=== PATIENT | female | born 1955 | race Caucasian/White ===

== ENCOUNTER 2018-11-21 08:44 | Outpatient (CLI) | payer MEDICARE ==
[2018-11-22] MEDS ORDERED: BAYER CHEWABLE81 MG PO (08:55)
[2018-11-22] MEDS ORDERED: APAP325 MG (08:55)
[2018-11-22] MEDS ORDERED: CATAPRES0.1 MG PO (08:55)
[2018-11-22] MEDS ORDERED: CYMBALTA30 MG (08:55)
[2018-11-22] MEDS ORDERED: MUCUS RELIEF400 MG (08:56)
[2018-11-22] MEDS ORDERED: PRINIVIL20 MG (08:56)
[2018-11-22] MEDS ORDERED: HYDROCHLOROTHIA25 MG (08:56)
[2018-11-22] MEDS ORDERED: LIPITOR40 MG (08:56)
[2018-11-22] MEDS ORDERED: FOLATE0.4 MG (08:56)
[2018-11-22] MEDS ORDERED: LOPRESSOR25 MG (08:57)
[2018-11-22] MEDS ORDERED: NEURONTIN 400400 MG (08:57)
[2018-11-22] MEDS ORDERED: CALCIUM 600 +1 EAC3 PO (14:46)
[2018-11-22] MEDS ORDERED: FOLATE0.4 MG PO (14:46)
[2018-11-22] MEDS ORDERED: CYMBALTA60 MG PO (14:46)
[2018-11-22] MEDS ORDERED: LIPITOR40 MG PO (14:47)
[2018-11-22] MEDS ORDERED: PRINIVIL20 MG PO (14:47)
[2018-11-22] MEDS ORDERED: MUCINEX600 MG PO (14:47)
[2018-11-22] MEDS ORDERED: METOPROLOL TART25 MG PO (14:48)
[2018-11-22] MEDS ORDERED: GABAPENTIN100 MG PO (14:48)
[2018-11-22] MEDS ORDERED: TESSALON PERLE100 MG PO (14:49)
[2018-11-22] MEDS ORDERED: ZANTAC300 MG PO (14:49)
[2018-11-22] MEDS ORDERED: TOPAMAX50 MG PO (14:49)
[2018-11-22] MEDS ORDERED: ZOFRAN4 MG PO (14:50)
[2018-11-22] MEDS ORDERED: HCTZ25 MG PO (14:51)
[2018-11-22] MEDS ORDERED: MELATONIN 3 MG1 TAB PO (14:53)
[2018-11-22] MEDS ORDERED: NYSTATIN1 PWD TOPICAL (14:54)
[2018-12-11 21:00] VITALS: BMI 51.6
== END 2018-11-21 12:56 | disposition other institution (70) ==
LOC: D.OPS 08:44
DX: I50.9 Heart failure, unspecified (principal)

== ENCOUNTER 2018-11-22 08:44 | Inpatient (IN) | payer MEDICARE ==
[~2018-11-22] VITALS: Ht 162.6 cm; Wt 122.3 kg
[2018-11-22] MEDS ORDERED: CYMBALTA30 MG (08:55)
[2018-11-22] MEDS ORDERED: CATAPRES0.1 MG PO (08:55)
[2018-11-22] MEDS ORDERED: BAYER CHEWABLE81 MG PO (08:55)
[2018-11-22] MEDS ORDERED: APAP325 MG (08:55)
[2018-11-22] MEDS ORDERED: HYDROCHLOROTHIA25 MG (08:56)
[2018-11-22] MEDS ORDERED: PRINIVIL20 MG (08:56)
[2018-11-22] MEDS ORDERED: LIPITOR40 MG (08:56)
[2018-11-22] MEDS ORDERED: FOLATE0.4 MG (08:56)
[2018-11-22] MEDS ORDERED: MUCUS RELIEF400 MG (08:56)
[2018-11-22] MEDS ORDERED: LOPRESSOR25 MG (08:57)
[2018-11-22] MEDS ORDERED: NEURONTIN 400400 MG (08:57)
[2018-11-22 10:04] LABS: BASOPHILS 0.3 % (0-2); EOSINOPHILS 3.4 % (0-7); HEMATOCRIT 38.2 % (36.0-48.0); HEMOGLOBIN 12.1 g/dL (12-16); IMMATURE GRANULOCYTES 0.2 % (0-5); LYMPHOCYTES 13.2 % (15-50); MCH 28.1 pg (26.0-34.0); MCHC 31.7 g/dL (31.0-37.0); MCV 88.6 fL (80.0-100.0); MEAN PLATELET VOLUME 12.1 fL (7.4-10.4); NEUTROPHILS 75.9 % (40-80); PLATELET COUNT 234 10x3/uL (130-400); RBC 4.31 10x6/uL (4.00-5.40); RDW 14.7 % (11.5-14.5); WBC 11.3 10x3/uL (4.8-10.8)
[2018-11-22 10:19] LABS: ALBUMIN 3.2 g/dL (3.4-5.0); ANION GAP 11.3 mmol/L (8-16); BILIRUBIN - TOTAL 0.57 mg/dL (0.2-1.3); CALCIUM 9.7 mg/dL (8.5-10.1); CARBON DIOXIDE 28.3 mmol/L (21.0-32.0); POTASSIUM - SERUM 3.6 mmol/L (3.5-5.1); PROTEIN - SERUM 7.3 g/dL (6.4-8.2)
[2018-11-22 10:24] VITALS: BP 131/79
[2018-11-22 10:27] LABS: MAGNESIUM - SERUM 2.1 mg/dL (1.8-2.4)
[2018-11-22 11:19] LABS: APPEARANCE CLEAR (CLEAR); BILIRUBIN NEGATIVE (NEGATIVE); COLOR YELLOW (YELLOW); GLUCOSE NEGATIVE (NEGATIVE); KETONE NEGATIVE (NEGATIVE); NITRITE NEGATIVE (NEGATIVE); PROTEIN NEGATIVE (NEGATIVE); SPECIFIC GRAVITY 1.005 (1.005-1.020); UROBILINOGEN NORMAL (NORMAL)
[2018-11-22 11:30] VITALS: BP 143/90
[2018-11-22 12:30] VITALS: BP 148/89
[2018-11-22] MEDS ORDERED: FOLATE0.4 MG PO (14:46)
[2018-11-22] MEDS ORDERED: CYMBALTA60 MG PO (14:46)
[2018-11-22] MEDS ORDERED: CALCIUM 600 +1 EAC3 PO (14:46)
[2018-11-22] MEDS ORDERED: MUCINEX600 MG PO (14:47)
[2018-11-22] MEDS ORDERED: PRINIVIL20 MG PO (14:47)
[2018-11-22] MEDS ORDERED: LIPITOR40 MG PO (14:47)
[2018-11-22] MEDS ORDERED: GABAPENTIN100 MG PO (14:48)
[2018-11-22] MEDS ORDERED: METOPROLOL TART25 MG PO (14:48)
[2018-11-22] MEDS ORDERED: TESSALON PERLE100 MG PO (14:49)
[2018-11-22] MEDS ORDERED: TOPAMAX50 MG PO (14:49)
[2018-11-22] MEDS ORDERED: ZANTAC300 MG PO (14:49)
[2018-11-22] MEDS ORDERED: ZOFRAN4 MG PO (14:50)
[2018-11-22] MEDS ORDERED: HCTZ25 MG PO (14:51)
[2018-11-22] MEDS ORDERED: MELATONIN 3 MG1 TAB PO (14:53)
[2018-11-22] MEDS ORDERED: NYSTATIN1 PWD TOPICAL (14:54)
[2018-11-22 16:40] VITALS: BP 152/85; Ht 162.6 cm; Wt 122.3 kg
[2018-11-22 20:30] VITALS: BP 136/66
[2018-11-23 00:38] VITALS: BP 134/74
[2018-11-23 05:40] VITALS: BP 117/65
[2018-11-23 08:31] VITALS: BP 129/71
[2018-11-23 09:30] LABS: HEMOGLOBIN 13.7 g/dL (12-16); MCH 28.4 pg (26.0-34.0); MCHC 31.9 g/dL (31.0-37.0); MCV 89.2 fL (80.0-100.0); MEAN PLATELET VOLUME 11.6 fL (7.4-10.4); PLATELET COUNT 239 10x3/uL (130-400); RBC 4.82 10x6/uL (4.00-5.40); WBC 10.8 10x3/uL (4.8-10.8)
[2018-11-23 09:47] LABS: BASOPHILS 2 % (0-2); EOSINOPHILS 5 % (0-7); LYMPHOCYTES 22 % (15-50); NEUTROPHILS 71 % (40-80); PLATELET ESTIMATE NORMAL
[2018-11-23 09:50] LABS: ANION GAP 12.7 mmol/L (8-16); CALCIUM 9.5 mg/dL (8.5-10.1); CARBON DIOXIDE 30.1 mmol/L (21.0-32.0); CREATININE - SERUM 1.1 mg/dL (0.6-1.3); POTASSIUM - SERUM 3.8 mmol/L (3.5-5.1)
[2018-11-23 12:54] VITALS: BP 90/53
[2018-11-23] MEDS ORDERED: ZYPREXA10 MG PO (13:07)
--- NOTE | 2018-11-24 11:33 | MORECARE ---
CASE MANAGEMENT DISCHARGE SUMMARY PATIENT: COLE MAE UNIT: [id number] ADM DATE: 11/22/18 AGE: 63 : 55 SEX: F ROOM/BED: D.2134 AUTHOR: MICHELLE GUTIERREZ PHYSICIAN: REFERRING PHYSICIAN: KATHIE ROSALES MD DATE OF SERVICE: 11/24/18 Discharge Plan Patient Name: COLE MAE Facility: [facility]:[place] : 1955 Planned Disposition: Nursing Facility [facility] Anticipated Discharge Date: 11/23/18 Discharge Date: 11/23/2018 Expected LOS: 1 Initial Reviewer: [email or web address] Initial Review Date: 11/24/2018 Generated: 11/24/18 12:33 pm Patient Name: COLE MAE Page 20334 at 1133 All edits/amendments must be made on the electronic document DICTATION DATE: 11/24/18 1132 AUCTIONEER TOBACCO: CHERRY 11/24/18 1132 RPT#: [id number] DC DATE:11/23/18 STATUS: DIS IN [facility] [address] [place] [address] END OF REPORT
--- NOTE | 2018-11-24 14:36 | EC ---
PATIENT:COLE MAE DATE OF SERVICE: 11/22/18 SEX: F MEDICAL RECORD: [id number] DATE OF : 55 LOCATION:D.M2 D.213 AGE OF PATIENT: 63 ADMISSION DATE: 11/22/18 REFERRING PHYSICIAN: INTERPRETING PHYSICIAN: CRISPIN NOBLES MD ECHOCARDIOGRAM REPORT ECHO CHARGES 4 ECHO COMPLETE Date: 11/23/18 CLINICAL DIAGNOSIS: CHF ECHOCARDIOGRAPHIC MEASUREMENTS (adult normal given) AC root (d.<3.7cm) 4.3 cm LV Septum d (<1.2 cm> 1.6 cm Valve Excursion 2.1 cm LV Septum (systole) 2.0 cm Left Atria (s.<4.0cm> 3.6 cm LVPW d(<1.2cm) 0.8 cm RV (d.<2.3cm) 3.7 cm LVPW (sytole) 0.9 cm LV diastole(<5.6CM) 4.8 cm MV E-F(>70mm/sec) cm LV systole 3.9 cm LVOT Diameter 2.0 cm MV exc.(>10mm) cm Est.ejection fraction (50-75%) % DOPPLER: LVIT cm/sec A 40 cm/sec E 38 cm/sec LA cm/sec RVSP 19.7 mmHg LVOT 100 cm/sec AOP1/2T m/s Asc. Ao 122 cm/sec RVOT 85 cm/sec RA cm/sec PA 78 cm/sec AV Gradient Peak 5.9 mmHg AV Mean 3.9 mmHg AV Area 2.5 cm MV Gradient Peak 1.1 mmHg MV Mean 0.7 mmHg MV Area cm COMMENTS: Policy Services Representative: Nasra RIGGSNAIMA MOSES Plug Maker: Fernie Nobles TAPE# PACS Pericardial Effusion N DATE OF SERVICE: 11/22/2018 FINDINGS: 1. Left ventricular chamber size is within normal limits. Left ventricular systolic function is normal. Overall ejection fraction is estimated at 60%. 2. Left atrium, right atrium, and right ventricle chamber sizes are within normal limit. 3. Valvular structures have normal structure and motion. 4. Doppler interrogation reveals only trace tricuspid regurgitation. No other valvular insufficiency or stenosis. Pulmonary systolic pressure is normal, ECHOCARDIOGRAM REPORT [id number] COLE MAE estimated at 19 mmHg. 5. No evidence of pericardial effusion or left ventricular thrombus. TRANSINT:[id number] Voice Confirmation ID: [id number] DOCUMENT ID: [id number] CRISPIN NOBLES MD at 1436 CC: [id number] DICTATION DATE: 11/23/18 1220 TAMALE MAKER: 11/23/18 1546 DIS IN 11/23/18 [place] [id number] [place] [id number]
== END 2018-11-23 15:48 | DRG 292 ==
LOC: D.ER 08:44 → D.EDHOLD 12:56 → D.M2 13:20
PROVIDERS: Emergency Medicine; ADMIT Legal Medicine
DX: I11.0 Hypertensive heart disease with heart failure (principal); F02.81 Dementia in other diseases classified elsewhere, unspecified severity, with behavioral disturbance; F31.30 Bipolar disorder, current episode depressed, mild or moderate severity, unspecified; I50.9 Heart failure, unspecified; E03.9 Hypothyroidism, unspecified; E78.5 Hyperlipidemia, unspecified; K21.9 Gastro-esophageal reflux disease without esophagitis; G30.9 Alzheimer's disease, unspecified; L89.012 Pressure ulcer of right elbow, stage 2; L89.892 Pressure ulcer of other site, stage 2

== ENCOUNTER 2018-12-11 20:42 | Emergency (ER) | payer MEDICARE ==
[~2018-12-11] VITALS: Ht 162.6 cm; Wt 136.4 kg
[~2018-12-11 20:42] MED LIST: APAP325 MG; BAYER CHEWABLE81 MG PO; CALCIUM 600 +1 EAC3 PO; CATAPRES0.1 MG PO; CYMBALTA30 MG; CYMBALTA60 MG PO; FOLATE0.4 MG; FOLATE0.4 MG PO; GABAPENTIN100 MG PO; HCTZ25 MG PO; HYDROCHLOROTHIA25 MG; LIPITOR40 MG; LIPITOR40 MG PO; LOPRESSOR25 MG; MELATONIN 3 MG1 TAB PO; METOPROLOL TART25 MG PO; MUCINEX600 MG PO; MUCUS RELIEF400 MG; NEURONTIN 400400 MG; NYSTATIN1 PWD TOPICAL; PRINIVIL20 MG; PRINIVIL20 MG PO; TESSALON PERLE100 MG PO; TOPAMAX50 MG PO; ZANTAC300 MG PO; ZOFRAN4 MG PO; ZYPREXA10 MG PO
[2018-12-11 21:00] VITALS: Ht 162.6 cm; Wt 136.4 kg
[2018-12-11 21:23] LABS: BASOPHILS 0.1 % (0-2); EOSINOPHILS 2.4 % (0-7); HEMATOCRIT 34.5 % (36.0-48.0); HEMOGLOBIN 11.1 g/dL (12-16); IMMATURE GRANULOCYTES 0.2 % (0-5); LYMPHOCYTES 12.7 % (15-50); MCH 28.8 pg (26.0-34.0); MCHC 32.2 g/dL (31.0-37.0); MCV 89.6 fL (80.0-100.0); MEAN PLATELET VOLUME 11.4 fL (7.4-10.4); MONOCYTES 7.1 % (2-11); NEUTROPHILS 77.5 % (40-80); PLATELET COUNT 228 10x3/uL (130-400); RBC 3.85 10x6/uL (4.00-5.40); WBC 13.9 10x3/uL (4.8-10.8)
[2018-12-11 21:50] LABS: ALBUMIN 3.1 g/dL (3.4-5.0); ANION GAP 12.6 mmol/L (8-16); BILIRUBIN - TOTAL 0.27 mg/dL (0.2-1.3); CALCIUM 9.5 mg/dL (8.5-10.1); CARBON DIOXIDE 29.1 mmol/L (21.0-32.0); CREATININE - SERUM 1.3 mg/dL (0.6-1.3); POTASSIUM - SERUM 4.7 mmol/L (3.5-5.1); PROTEIN - SERUM 7.3 g/dL (6.4-8.2)
[2018-12-11 21:59] LABS: THYROID STIMULATING HORMONE 2.77 uIU/mL (0.36-3.74)
[2018-12-11 23:31] LABS: APPEARANCE HAZY (CLEAR); BACTERIA FEW /hpf (NONE SEEN); BILIRUBIN NEGATIVE (NEGATIVE); COLOR YELLOW (YELLOW); EPITHELIAL CELLS NSEEN /hpf (0-5); GLUCOSE NEGATIVE (NEGATIVE); KETONE NEGATIVE (NEGATIVE); NITRITE NEGATIVE (NEGATIVE); PROTEIN NEGATIVE (NEGATIVE); RED CELLS - URINE 0-5 /hpf (0-5); SPECIFIC GRAVITY 1.005 (1.005-1.020); UROBILINOGEN NORMAL (NORMAL)
[2018-12-12 00:27] LABS: CHOL - HDL RATIO 3.5 ratio (2.3-4.1); LDL-HDL RATIO 1.5 ratio (1.5-3.5)
[2018-12-12 02:36] VITALS: BP 140/70
== END 2018-12-12 02:36 ==
LOC: D.ER 20:42
PROVIDERS: Family Medicine
DX: F23 Brief psychotic disorder (principal); F03.90 Unspecified dementia, unspecified severity, without behavioral disturbance, psychotic disturbance, mood disturbance, and anxiety; N39.0 Urinary tract infection, site not specified; I10 Essential (primary) hypertension

== ENCOUNTER → 2019-01-24 19:39 | Outpatient (CLI) | payer MEDICARE ==
[2018-12-11 21:00] VITALS: BMI 51.6
== END | disposition home or self-care (01) ==
LOC: D.LABREF 19:39
PROVIDERS: ATTEND Legal Medicine
DX: Z20.828 Contact with and (suspected) exposure to other viral communicable diseases (principal)

== ENCOUNTER 2019-06-03 10:12 | Inpatient (IN) | payer MEDICARE ==
[~2019-06-03] VITALS: Ht 152.4 cm; Wt 122.5 kg
--- NOTE | 2019-06-03 10:34 | NUR ---
SL SITED LAC WITH LAB DRAW INCLUDING 1 BC
[2019-06-03] MEDS ORDERED: FERROUS SULFAT325 MG PO (10:44)
[2019-06-03] MEDS ORDERED: REMERON15 MG PO (10:44)
[2019-06-03 11:17] LABS: BASOPHILS 0.1 % (0-2); EOSINOPHILS 3.9 % (0-7); HEMATOCRIT 35.3 % (36.0-48.0); HEMOGLOBIN 10.9 g/dL (12-16); IMMATURE GRANULOCYTES 0.4 % (0-5); LYMPHOCYTES 11.3 % (15-50); MCH 28.3 pg (26.0-34.0); MCHC 30.9 g/dL (31.0-37.0); MCV 91.7 fL (80.0-100.0); MEAN PLATELET VOLUME 11.5 fL (7.4-10.4); MONOCYTES 6.1 % (2-11); NEUTROPHILS 78.2 % (40-80); PLATELET COUNT 203 10x3/uL (130-400); RBC 3.85 10x6/uL (4.00-5.40); RDW 16.1 % (11.5-14.5); WBC 10.8 10x3/uL (4.8-10.8)
--- NOTE | 2019-06-03 11:22 | NUR ---
PT INCONT OF LARGE AMT URINE. CLEANED AND REPOSITIONED FOR COMFORT. NOTIED SMALL STAGE 2 DECUB TO BUTTOCKS. NO DRAINAGE.
[2019-06-03 11:25] VITALS: BP 149/58
[2019-06-03 11:26] LABS: ALBUMIN 3.1 g/dL (3.4-5.0); ANION GAP 9.6 mmol/L (8-16); BILIRUBIN - TOTAL 0.43 mg/dL (0.2-1.3); CALCIUM 8.7 mg/dL (8.5-10.1); CARBON DIOXIDE 31.2 mmol/L (21.0-32.0); CREATININE - SERUM 1.4 mg/dL (0.6-1.3); POTASSIUM - SERUM 3.8 mmol/L (3.5-5.1); PROTEIN - SERUM 7.1 g/dL (6.4-8.2)
--- NOTE | 2019-06-03 12:15 | NUR ---
LAC SL VERY POSITIONAL/OCCLUDING FREQUENTLY. ATTEMPTED TO PLACE 2ND SL WITHOUT SUCCESS. 2ND RN TO ATTEMPT
[2019-06-03 14:07] VITALS: BP 151/64
--- NOTE | 2019-06-03 14:19 | NUR ---
REPORT CALLED TO WERNER PIERRE BY SBAR FORMAT
--- NOTE | 2019-06-03 14:25 | NUR ---
TRANSPORTED TO THE FLOOR rM#[id number]. CONDITION STABLE
--- NOTE | 2019-06-03 14:50 | NUR ---
PT RECIEVED TO ROOM 2236 VIA STRETCHER FROM ER. ALERT AND ORIENTED NO ACUTE DISTRESS NOTED. PT REPORTS INCREASED REDNESS, SWELLING AND PAIN TO BILAT LOWER EXTREMITIES. BRIGHT RED REDNESS NOTED TO BILATERAL EXTREMITIES, INTACT BLISTERS NOTED TO RIGHT OUTER LEG WITH CRACKING SKIN TO BILATERAL LEGS. NO DRAINAGE NOTED AT THIS TIME. BLANCHABLE REDNESS NOTED TO COCCYX. IV TO LEFT AC WITH NS @ 100ML/HR INFUSING VIA PUMP. SITE WITHOUT REDNESS OR EDEMA. ORIENTED TO BED CONTROLS, CL AND ROOM.
[2019-06-03 15:02] VITALS: BP 179/73
[2019-06-03 20:50] VITALS: BP 105/56
[2019-06-04 00:50] VITALS: BP 104/66
[2019-06-04 04:47] VITALS: BP 124/60
[2019-06-04 06:50] LABS: BASOPHILS 0.2 % (0-2); EOSINOPHILS 4.2 % (0-7); HEMATOCRIT 35.2 % (36.0-48.0); HEMOGLOBIN 10.8 g/dL (12-16); IMMATURE GRANULOCYTES 0.6 % (0-5); LYMPHOCYTES 12.6 % (15-50); MCH 28.5 pg (26.0-34.0); MCHC 30.7 g/dL (31.0-37.0); MCV 92.9 fL (80.0-100.0); MEAN PLATELET VOLUME 10.4 fL (7.4-10.4); MONOCYTES 8.1 % (2-11); NEUTROPHILS 74.3 % (40-80); PLATELET COUNT 188 10x3/uL (130-400); RBC 3.79 10x6/uL (4.00-5.40); RDW 16.3 % (11.5-14.5)
[2019-06-04 07:04] LABS: CALCIUM 8.4 mg/dL (8.5-10.1); CARBON DIOXIDE 32.2 mmol/L (21.0-32.0); CREATININE - SERUM 1.4 mg/dL (0.6-1.3); POTASSIUM - SERUM 4.2 mmol/L (3.5-5.1)
--- NOTE | 2019-06-04 08:50 | NUR ---
PT RESTING IN BED WITH EYES CLOSED. INCONTINENT CARE PROVIDED AT THIS TIME DT BEING INCONTINENT OF URINE. NO ACUTE DISTRESS NOTED AT THIS TIME. O2 @ 2L NC IN PLACE. DENIES PAIN AT THIS TIME. SALINE LOC TO LEFT AC PATENT, WITHOUT REDNESS OR EDEMA. DRESSINGS C/D/I TO BILAT LOWER EXTREMITY. DENIES PAIN AT THIS TIME. DENIES FURTHER NEEDS. CL WITHIN REACH. ENCOURAGED TO CALL WITH NEEDS. CONTINUE POC
[2019-06-04 09:48] VITALS: BP 164/71
[2019-06-04 13:19] VITALS: BP 136/65
[2019-06-04 13:58] VITALS: Ht 152.4 cm; Wt 122.5 kg
[2019-06-04 16:44] VITALS: BP 134/82
--- NOTE | 2019-06-04 20:00 | NUR ---
EYES CLOSED SNORING RESPIRATIONS NOTED AROUSED EASILY, NO APPARENT DISTRESS, SONNY WRAPS IN PLACE TO BILATERAL LOWER LEGS, SEE SHIFT ASSESSMENT DONE AT THIS TIME, CALL LIGHT IN REACH
[2019-06-04 21:58] VITALS: BP 119/57
[2019-06-05 01:37] VITALS: BP 117/58
[2019-06-05 05:37] VITALS: BP 108/62
[2019-06-05 08:21] LABS: BASOPHILS 0.1 % (0-2); EOSINOPHILS 3.8 % (0-7); HEMATOCRIT 34.3 % (36.0-48.0); HEMOGLOBIN 10.6 g/dL (12-16); IMMATURE GRANULOCYTES 0.5 % (0-5); LYMPHOCYTES 11.8 % (15-50); MCH 28.3 pg (26.0-34.0); MCHC 30.9 g/dL (31.0-37.0); MCV 91.7 fL (80.0-100.0); NEUTROPHILS 73.8 % (40-80); PLATELET COUNT 205 10x3/uL (130-400); RBC 3.74 10x6/uL (4.00-5.40); WBC 10.1 10x3/uL (4.8-10.8)
[2019-06-05 08:39] LABS: ANION GAP 8.6 mmol/L (8-16); CALCIUM 8.5 mg/dL (8.5-10.1); CARBON DIOXIDE 30.4 mmol/L (21.0-32.0); CREATININE - SERUM 1.1 mg/dL (0.6-1.3)
[2019-06-05 09:51] VITALS: BP 135/73
[2019-06-05 12:00] VITALS: BP 125/64
[2019-06-05 16:51] VITALS: BP 114/75
--- NOTE | 2019-06-05 18:03 | NUR ---
PT IS WITHOUT NEEDS.CALL LIGHT IN REACH
[2019-06-05 20:00] VITALS: BP 138/57
[2019-06-06] VITALS: BP 142/68
[2019-06-06 04:00] VITALS: BP 139/64
--- NOTE | 2019-06-06 04:56 | NUR ---
ASSESSED AT THE BEGINNING OF THE SHIFT. PT IS ALERT AND ORIENTED, ABLE TO VERBALIZE NEEDS. SHE REMAINS INCONT. OF URINE AND WE ARE CHANGING HER AND THE LINENS EACH TIME SHE VOIDS. ISOLATION IS STILL IN PLACE FOR STAPH AND SHE HAS DRESSINGS IN PLACE TO BOTH OF HER LOWER EXTREMITIES. MOST OF THE EVENING SHE HAS BEEN ASLEEP AND RESTED WELL. NO COMPLAINTS HAVE BEEN VOICED. WILL CONTINUE TO MONITOR.
[2019-06-06 05:50] LABS: BASOPHILS 0.2 % (0-2); HEMATOCRIT 35.4 % (36.0-48.0); HEMOGLOBIN 10.8 g/dL (12-16); IMMATURE GRANULOCYTES 0.7 % (0-5); LYMPHOCYTES 10.8 % (15-50); MCH 28.1 pg (26.0-34.0); MCHC 30.5 g/dL (31.0-37.0); MCV 92.2 fL (80.0-100.0); MEAN PLATELET VOLUME 10.6 fL (7.4-10.4); NEUTROPHILS 74.3 % (40-80); PLATELET COUNT 217 10x3/uL (130-400); RBC 3.84 10x6/uL (4.00-5.40); RDW 15.9 % (11.5-14.5); WBC 11.4 10x3/uL (4.8-10.8)
[2019-06-06 06:35] LABS: ANION GAP 11.9 mmol/L (8-16); CALCIUM 8.9 mg/dL (8.5-10.1); CARBON DIOXIDE 29.4 mmol/L (21.0-32.0); CREATININE - SERUM 0.9 mg/dL (0.6-1.3); POTASSIUM - SERUM 4.3 mmol/L (3.5-5.1)
[2019-06-06 09:29] VITALS: BP 167/80
[2019-06-06 13:50] VITALS: BP 138/66
--- NOTE | 2019-06-06 15:58 | NUR ---
PLACED RIBEIRO CATH, RETENTION AND COMPROMISED WOUND HEALING. TOLERATED WELL. 900 RETURN, WELL SATURATING THE BED. ALSO RESITED IV TO L CHEST, 20G. TOLERATED WELL NO COMPLAINTS.
[2019-06-06 17:52] VITALS: BP 149/75
--- NOTE | 2019-06-06 19:38 | NUR ---
I have reviewed this patient and I concur with the Shift Assessment completed by the Licensed Practical Nurse today this shift.
--- NOTE | 2019-06-06 19:55 | NUR ---
LYING IN BED. DROWSY. RESP NONLABORED. BBS CTA. O2 @ 2L/NC. ABD OBESE. DRSG NOTED TO BLE. 2+ EDEMA NOTED TO BLE. PEDAL PULSES WEAK. RIBEIRO CATH PATENT AND DRAINING CLEAR YELLOW URINE. SALINE LOCK NOTED TO LT CHEST/AXILLARY REGION. CONFUSED TO SITUATION. SR ELEVATED X2. CL IN REACH. NO DISTRESS.
--- NOTE | 2019-06-06 22:00 | NUR ---
MELATONIN HELD DUE TO DROWSINESS.
--- NOTE | 2019-06-07 01:03 | NUR ---
SITTING UP IN BED EATING A SALAD. NO DISTRESS. CL IN REACH.
[2019-06-07 01:42] VITALS: BP 140/46
[2019-06-07 04:00] VITALS: BP 126/63
[2019-06-07 09:16] VITALS: BP 157/90
[2019-06-07 12:35] VITALS: BP 165/93
--- NOTE | 2019-06-07 15:54 | NUR ---
I have reviewed this patient and I concur with the Shift Assessment completed by the Licensed Practical Nurse today this shift.
[2019-06-07 16:36] VITALS: BP 165/82
--- NOTE | 2019-06-07 19:25 | NUR ---
LYING IN BED. ALERT AND ORIENTED TO SELF AND PLACE. CONFUSED. RESP IRREG. NONLABORED. O2 @ 2L/NC. DRSGS NOTED TO BLE. 2+ EDEMA NOTED TO BLE. NONPROD COUGH. RIBEIRO CATH PATENT AND DRAINING CLEAR YELLOW URINE. SALINE LOCK NOTED TO LT CHEST/AXILLA REGION. NO DISTRESS. DENIES PAIN. SR ELEVATED X2. CL IN REACH.
[2019-06-07 20:00] VITALS: BP 146/84
[2019-06-08] VITALS: BP 127/54
--- NOTE | 2019-06-08 01:31 | NUR ---
RESTING IN BED WITH EYES CLOSED. RESP EVEN AND NONLABORED. O2 @ 2L/NC. NO DISTRESS. SR ELEVATED X2. CL IN REACH.
[2019-06-08 05:15] LABS: BASOPHILS 0.2 % (0-2); HEMATOCRIT 34.4 % (36.0-48.0); HEMOGLOBIN 10.8 g/dL (12-16); IMMATURE GRANULOCYTES 0.5 % (0-5); LYMPHOCYTES 9.5 % (15-50); MCH 28.6 pg (26.0-34.0); MCHC 31.4 g/dL (31.0-37.0); MEAN PLATELET VOLUME 10.5 fL (7.4-10.4); MONOCYTES 9.6 % (2-11); NEUTROPHILS 77.2 % (40-80); PLATELET COUNT 223 10x3/uL (130-400); RBC 3.78 10x6/uL (4.00-5.40); RDW 15.7 % (11.5-14.5); WBC 12.6 10x3/uL (4.8-10.8)
[2019-06-08 05:17] LABS: ANION GAP 9.1 mmol/L (8-16); CARBON DIOXIDE 31.8 mmol/L (21.0-32.0); POTASSIUM - SERUM 3.9 mmol/L (3.5-5.1)
--- NOTE | 2019-06-08 06:29 | NUR ---
HAS RESTED WELL THIS SHIFT. LYING IN BED WITH EYES CLOSED. RESP EVEN AND NONLABORED. O2 IN USE. SR ELEVATED X2. CL IN REACH. NO DISTRESS.
--- NOTE | 2019-06-08 07:44 | NUR ---
ALERT AND ORIENTED TO SELF. LUNGS CLEAR BILATERALLY IN ALL TAYLOR. HEART SOUNDS S1 AND S2 HEARD IN ALL TAYLOR. BOWEL SOUNDS ACTIVE X 4. DRSGS IN PLACE TO BLE WITH SONNY WRAPS FOR CELLULITIS. SKIN OTHERWISE INTACT WITHOUT REDNESS. IV TO LEFT CHEST PATENT WITHOUT REDNESS. RIBEIRO PATENT DRAINING CLEAR YELLOW URINE. DENIES PAIN. ASSISTED TO BEDPAN. BED LOW. CALL KEANE AND PERSONAL ITEMS IN REACH. WILL CONTINUE TO MONITOR.
[2019-06-08 09:46] VITALS: BP 135/64
--- NOTE | 2019-06-08 12:36 | NUR ---
RESTING IN BED. DENIES PAIN. DENIES NEEDS. WILL CONTINUE TO MONITOR.
[2019-06-08 14:06] LABS: APPEARANCE CLEAR (CLEAR); BILIRUBIN NEGATIVE (NEGATIVE); COLOR YELLOW (YELLOW); GLUCOSE NEGATIVE (NEGATIVE); KETONE NEGATIVE (NEGATIVE); NITRITE NEGATIVE (NEGATIVE); PROTEIN 1+ mg/dL (NEGATIVE); SPECIFIC GRAVITY 1.015 (1.005-1.020); UROBILINOGEN NORMAL (NORMAL)
[2019-06-08 14:07] LABS: BACTERIA FEW /hpf (NONE SEEN); EPITHELIAL CELLS 0-5 /hpf (0-5); RED CELLS - URINE 25-50 /hpf (0-5); WHITE CELLS - URINE 0-5 /hpf (0-5)
[2019-06-08 14:23] VITALS: BP 133/100
--- NOTE | 2019-06-08 14:34 | NUR ---
SLEEPING. WILL CONTINUE TO MONITOR.
--- NOTE | 2019-06-08 16:44 | MORECARE ---
CASE MANAGEMENT DISCHARGE SUMMARY PATIENT: COLE MAE UNIT: [id number] ADM DATE: 06/03/19 AGE: 63 : 55 SEX: F ROOM/BED: D.2236 AUTHOR: MICHELLE GUTIERREZ PHYSICIAN: REFERRING PHYSICIAN: DEANDRE RACHEL MD DATE OF SERVICE: 06/08/19 Discharge Plan Patient Name: COLE MAE [facility] [facility] 1955 Planned Disposition: Nursing Facility [facility] Cert Anticipated Discharge Date: Discharge Date: Expected LOS: Initial Reviewer: [id number] Initial Review Date: 06/08/2019 Generated: 06/08/19 5:43 pm Patient Name: COLE MAE Page 61532 at 1644 All edits/amendments must be made on the electronic document DICTATION DATE: 06/08/191642 OIL PROSPECTING OBSERVER: CHERRY 06/08/191642 RPT#: [id number] DC DATE: STATUS: ADM IN [facility] [address] [place] [address] END OF REPORT
--- NOTE | 2019-06-08 16:53 | MORECARE ---
CASE MANAGEMENT DISCHARGE SUMMARY PATIENT: COLE MAE UNIT: [id number] ADM DATE: 06/03/19 AGE: 63 : 55 SEX: F ROOM/BED: D.2236 AUTHOR: MATT,DOC PHYSICIAN: REFERRING PHYSICIAN: DEANDRE RACHEL MD DATE OF SERVICE: 06/08/19 Discharge Plan Patient Name: COLE MAE Facility: [facility]:[place] : 1955 Planned Disposition: Nursing Facility [facility] Cert Anticipated Discharge Date: Discharge Date: Expected LOS: Initial Reviewer: [email or web address] Initial Review Date: 06/08/2019 Generated: 06/08/19 5:53 pm Comments DCP- Discharge Planning Updated by [email or web address]: Johana Patino on 06/08/19 3:[address] Patient Name: COLE MAE Admission Status: ER Accout number: [id number] Admission Date: 06-03-2019 : 1955 Admission Diagnosis:CELLULITIS OF LEFT LOWER LIMB Attending: RIRI Current LOS: 5 Anticipated DC Date: Planned Disposition: Nursing Facility [facility] Cert Primary Insurance: MEDICARE A & B Discharge Planning Comments: CM met with patient to complete initial dc planning assessment. CM educated patient on the CM role and verbal consent given by patient to complete assessment. Patient lives at [facility]. At discharge patient plans to return and feels this is a safe discharge. She states that she will be able to transport in their van when ready for discharge. CM will continue to follow and will assist as needed with dc plans/needs. Commercial Sales Director: Johana Patino DCPIA - Discharge Planning Initial Assessment Updated by [id number]: Johana Patino on 06/08/19 4:44 pm * Is the patient Alert and Oriented? Yes * PCP Dr. Almonte * Preadmission Environment Mechanic Welder Truck Driver Care Home * Facility Name [facility] * ADLs Total Dependent * Other Equipment All equipment provided by [facility] * List name and contact numbers for known caregivers / representatives who currently or will assist patient after discharge: Nery Weber - nikrishna - [phone] Jovany mckinnon - [phone] * Verbal permission to speak to the caregivers and representatives has been obtained from the patient. Yes * Community resources currently utilized None * Additional services required to return to the preadmission environment? No * Can the patient safely return to the preadmission environment? Yes * Has this patient been hospitalized within the prior 30 days at any hospital? No Coverage Notice Reviewer: [id number] Zenobia Patino Notice Issued Date-Time: 06/08/2019 16:46 Notice Type: Patient Choice Letter Notice Delivered To: Patient Relationship to Patient: Self [employer] Name: Delivery Method: HAND - Hand Delivered Juliann Days: Prior Verbal Notification: Recipient Understood Notice: Yes Recipient Signature: Yes Med Rec Note Co-signed by Attending: Coverage Notice Comment: JOSE for [facility] Last DP export: 06/08/19 3:43 p Patient Name: COLE MAE Page 02924 at 1653 All edits/amendments must be made on the electronic document DICTATION DATE: 06/08/191651 BRAND MANAGER: CHERRY 06/08/191651 RPT#: [id number] DC DATE: STATUS: ADM IN [facility] [address] [place] [address] END OF REPORT
[2019-06-08 17:12] VITALS: BP 132/56
--- NOTE | 2019-06-08 18:48 | NUR ---
RESTING IN BED. DENIES PAIN. DENIES NEEDS. BED LOW. CALL KEANE AND PERSONAL ITESM IN REACH. WILL CONTINUE TO MONITOR.
--- NOTE | 2019-06-08 19:40 | NUR ---
PT LYING IN BED RESTING WITHOUT DISTRESS, DENIES NEEDS. CL IN REACH, WILL CTM
[2019-06-08 22:03] VITALS: BP 112/53
[2019-06-09 01:49] VITALS: BP 120/67
[2019-06-09 06:31] VITALS: BP 110/54
[2019-06-09 09:18] LABS: ANION GAP 8.4 mmol/L (8-16); CARBON DIOXIDE 33.5 mmol/L (21.0-32.0); POTASSIUM - SERUM 3.9 mmol/L (3.5-5.1)
[2019-06-09 09:20] LABS: BASOPHILS 0.1 % (0-2); EOSINOPHILS 2.8 % (0-7); HEMATOCRIT 33.6 % (36.0-48.0); HEMOGLOBIN 10.6 g/dL (12-16); IMMATURE GRANULOCYTES 0.5 % (0-5); LYMPHOCYTES 9.9 % (15-50); MCH 28.4 pg (26.0-34.0); MCHC 31.5 g/dL (31.0-37.0); MCV 90.1 fL (80.0-100.0); MEAN PLATELET VOLUME 10.9 fL (7.4-10.4); MONOCYTES 9.6 % (2-11); NEUTROPHILS 77.1 % (40-80); PLATELET COUNT 240 10x3/uL (130-400); RBC 3.73 10x6/uL (4.00-5.40); RDW 15.7 % (11.5-14.5); WBC 13.4 10x3/uL (4.8-10.8)
[2019-06-09 09:32] VITALS: BP 141/76
--- NOTE | 2019-06-09 10:26 | NUR ---
PATIENT RESTING WITH NO NEEDS VOICED, ASSISTED WITH BEDPAN FOR BM. PATIENT IS VERY WEAK AND IS UNBLE TO TURN WITH OUT ASSISTANCE. CL IN REACH
[2019-06-09 13:01] VITALS: BP 114/61
[2019-06-09 18:45] VITALS: BP 130/69
[2019-06-09 20:00] VITALS: BP 127/78
[2019-06-10] VITALS: BP 130/75
[2019-06-10 04:00] VITALS: BP 127/66
[2019-06-10 07:02] LABS: BASOPHILS 0.2 % (0-2); HEMATOCRIT 34.3 % (36.0-48.0); HEMOGLOBIN 10.9 g/dL (12-16); IMMATURE GRANULOCYTES 0.6 % (0-5); LYMPHOCYTES 10.3 % (15-50); MCH 28.6 pg (26.0-34.0); MCHC 31.8 g/dL (31.0-37.0); MONOCYTES 7.3 % (2-11); NEUTROPHILS 78.6 % (40-80); PLATELET COUNT 255 10x3/uL (130-400); RBC 3.81 10x6/uL (4.00-5.40); RDW 15.9 % (11.5-14.5); WBC 13.6 10x3/uL (4.8-10.8)
[2019-06-10 07:16] LABS: ANION GAP 11.3 mmol/L (8-16); CALCIUM 9.5 mg/dL (8.5-10.1); CARBON DIOXIDE 30.5 mmol/L (21.0-32.0); CREATININE - SERUM 0.9 mg/dL (0.6-1.3); POTASSIUM - SERUM 3.8 mmol/L (3.5-5.1)
--- NOTE | 2019-06-10 08:00 | NUR ---
IV RESITED TO LEFT HAND X 1 STICK 22G, PATIENT TOLERATED WELL. IV TO LEFT UPPER ARM WAS ACCIDENTLY PULLED OUT, CATH INTACT
[2019-06-10 09:02] VITALS: BP 159/69
[2019-06-10 13:41] VITALS: BP 141/82
--- NOTE | 2019-06-10 14:34 | NUR ---
NUTRITION F/U PT TOLERATING NCS DIET WITH 50 TO 75% INTAKE RECENT MEALS. WILL CONTINUE TO PROVIDE DIET, MONITOR PO INTAKE. RD FOLLOWING
[2019-06-10 17:21] VITALS: BP 149/76
[2019-06-10 20:00] VITALS: BP 93/54
--- NOTE | 2019-06-10 20:30 | NUR ---
AWAKE,ALERT,ORIENTED. WATCHING TV WITHOUT DISTRESS NOTED. NO COMPLAINTS VOICED. IV TO LEFT HAND INTACT WITHOUT REDNESS OR EDMA NOTED. RIBEIRO PATENT AND DRAINING DARK HIGINIO URINE.SONNY WRAP INTACT TO BILATERAL LOWER LEGS. CL IN REACH
[2019-06-11 04:00] VITALS: BP 134/66
--- NOTE | 2019-06-11 06:22 | NUR ---
I have reviewed this patient and I concur with the Shift Assessment completed by the Licensed Practical Nurse today this shift.
[2019-06-11 07:30] VITALS: BP 178/88
--- NOTE | 2019-06-11 07:30 | NUR ---
PT RESTING QUIETLY IN BED WATCHING TV. NO ACUTE DISTRESS NOTED. O2 @ 2L NC IN PLACE. PT REPORTS NEEDING BED BURKETT FOR BM. ASSISTED PT WITH BED BURKETT AT THIS TIME. LARGE FORMED BM NOTED. PROVIDED SHERRIE CARE AT THIS TIME. IV TO LEFT HAND WITH NS @ 10ML/HR INFUSING VIA PUMP. SITE WITHOUT REDNESS OR EDMEA. F/C PATENT TO GRAVITY AND DRAINING. DENIES PAIN AT THIS TIME. BILAT LOWER EXTREMITIES WITH SONNY WRAP INTACT. DENIES FURTHER NEEDS AT THIS TIME. CL WITHIN REACH. ENCOURAGED TO CALL WITH NEEDS. CONTINUE POC
[2019-06-11 13:43] VITALS: BP 150/71
--- NOTE | 2019-06-11 14:58 | MORECARE ---
CASE MANAGEMENT DISCHARGE SUMMARY PATIENT: COLE MAE UNIT: [id number] ADM DATE: 06/03/19 AGE: 63 : 55 SEX: F ROOM/BED: D.2236 AUTHOR: MATT,DOC PHYSICIAN: REFERRING PHYSICIAN: DEANDRE RACHEL MD DATE OF SERVICE: 06/11/19 Discharge Plan Patient Name: COLE MAE Facility: [facility]:[place] : 1955 Planned Disposition: Nursing Facility [facility] Cert Anticipated Discharge Date: Discharge Date: Expected LOS: Initial Reviewer: [email or web address] Initial Review Date: 06/08/2019 Generated: 06/11/19 3:58 pm Comments DCP- Discharge Planning Updated by [id number]: Johana Patino on 06/11/19 1:[address] Updated clinical sent to [facility]. Zulay states to call her tomorrow at [phone] if she is discharged so she can set up equipment needs, etc. CM will continue to follow and assist with discharge planning/needs. DCP- Discharge Planning Updated by [id number]: Johana Patino on 06/08/19 3:[address] Patient Name: COLE MAE Admission Status: ER Accout number: [id number] Admission Date: 06-03-2019 : 1955 Admission Diagnosis:CELLULITIS OF LEFT LOWER LIMB Attending: RIRI Current LOS: 5 Anticipated DC Date: Planned Disposition: Nursing Facility [facility] Cert Primary Insurance: MEDICARE A & B Discharge Planning Comments: CM met with patient to complete initial dc planning assessment. CM educated patient on the CM role and verbal consent given by patient to complete assessment. Patient lives at [facility]. At discharge patient plans to return and feels this is a safe discharge. She states that she will be able to transport in their van when ready for discharge. CM will continue to follow and will assist as needed with dc plans/needs. Poultry Scalder: Johana Patino DCPIA - Discharge Planning Initial Assessment Updated by [email or web address]: Johana Patino on 06/08/19 4:44 pm * Is the patient Alert and Oriented? Yes * PCP Dr. Almonte * Preadmission Environment Gifted Program Teacher Half-Way * Facility Name [facility] * ADLs Total Dependent * Other Equipment All equipment provided by [facility] * List name and contact numbers for known caregivers / representatives who currently or will assist patient after discharge: Nery montes - [phone] Jovany mckinnon - [phone] * Verbal permission to speak to the caregivers and representatives has been obtained from the patient. Yes * Community resources currently utilized None * Additional services required to return to the preadmission environment? No * Can the patient safely return to the preadmission environment? Yes * Has this patient been hospitalized within the prior 30 days at any hospital? No External Providers External Provider: [facility] Next Contact Date: Service Request Date: Service Type: Resolution: Reviewer: Comments: Coverage Notice Reviewer: [id number] Zenobia Patino Notice Issued Date-Time: 06/08/2019 16:46 Notice Type: Patient Choice Letter Notice Delivered To: Patient Relationship to Patient: Self Tattoo Artist Name: Delivery Method: HAND - Hand Delivered Juliann Days: Prior Verbal Notification: Recipient Understood Notice: Yes Recipient Signature: Yes Med Rec Note Co-signed by Attending: Coverage Notice Comment: JOSE for [facility] Last DP export: 06/08/19 3:53 p Patient Name: COLE MAE Page 79801 at 1458 All edits/amendments must be made on the electronic document DICTATION DATE: 06/11/191456 MACHINE BUFFER: CHERRY 06/11/191456 RPT#: [id number] [place] DATE: STATUS: ADM IN [facility] [address] [place] [address] END OF REPORT
[2019-06-11 17:24] VITALS: BP 124/56
--- NOTE | 2019-06-11 19:42 | NUR ---
PT LYING IN BED. CL IN REACH. DENIES NEEDS AT THIS TIME. BED IN LOW SIDE RAILS X2. REPS EVEN AND UNLABORED. O2 ON 2L VIA NC. WILL CONTINUE TO MONITOR.
[2019-06-11 20:00] VITALS: BP 144/70
--- NOTE | 2019-06-12 01:58 | NUR ---
I have reviewed this patient and I concur with the Shift Assessment completed by the Licensed Practical Nurse today this shift.
--- NOTE | 2019-06-12 03:14 | NUR ---
ASSISTED PILOT PLANT TECHNICIAN WITH BED BATH. CHANGED LINEN AND GOWN. SHERRIE CARE PROVIDED. CL IN REACH. DENIES NEEDS AT THIS TIME. WCERIC
[2019-06-12 04:00] VITALS: BP 139/67
[2019-06-12 04:56] LABS: BASOPHILS 0.2 % (0-2); EOSINOPHILS 3.3 % (0-7); HEMATOCRIT 34.9 % (36.0-48.0); IMMATURE GRANULOCYTES 0.5 % (0-5); LYMPHOCYTES 14.8 % (15-50); MCH 28.6 pg (26.0-34.0); MCHC 31.5 g/dL (31.0-37.0); MCV 90.6 fL (80.0-100.0); MEAN PLATELET VOLUME 10.8 fL (7.4-10.4); MONOCYTES 6.8 % (2-11); NEUTROPHILS 74.4 % (40-80); PLATELET COUNT 265 10x3/uL (130-400); RBC 3.85 10x6/uL (4.00-5.40); RDW 15.9 % (11.5-14.5); WBC 13.1 10x3/uL (4.8-10.8)
[2019-06-12 05:05] LABS: ANION GAP 10.5 mmol/L (8-16); CALCIUM 9.2 mg/dL (8.5-10.1); CARBON DIOXIDE 32.4 mmol/L (21.0-32.0); POTASSIUM - SERUM 3.9 mmol/L (3.5-5.1)
[2019-06-12 09:01] VITALS: BP 136/71
[2019-06-12] MEDS ORDERED: BACTRIM 400-801 TAB PO (09:16)
--- NOTE | 2019-06-12 10:35 | NUR ---
ALERT AND ORIENTEDX4 IVF INFUSING AT PREWCRIBED RATE TO LT. HAND W/O ANY S/S OF INFECTION/INFILTRATION. RIBEIRO CATH INTACT WITH HIGINIO URINE. DRESSING INTACT TO BLE AND DENIES ANY PAIN OR DISCOMFORT AT THIS TIME. ENCOURAGED TO USE CALL LIGHT FOR ASSIST.
--- NOTE | 2019-06-12 12:14 | MORECARE ---
CASE MANAGEMENT DISCHARGE SUMMARY PATIENT: COLE MAE UNIT: [id number] ADM DATE: 06/03/19 AGE: 63 : 55 SEX: F ROOM/BED: D.2236 AUTHOR: MATT,DOC PHYSICIAN: REFERRING PHYSICIAN: DEANDRE RACHEL MD DATE OF SERVICE: 06/12/19 Discharge Plan Patient Name: COLE MAE Facility: [facility]:[place] : 1955 Planned Disposition: Nursing Facility [facility] Cert Anticipated Discharge Date: Discharge Date: Expected LOS: Initial Reviewer: [email or web address] Initial Review Date: 06/08/2019 Generated: 06/12/19 1:14 pm Comments DCP- Discharge Planning Updated by [id number]: Johana Patino on 06/12/19 11:[address] Patient Name: COLE MAE Encounter No: [id number] : 1955 Primary Insurance: MEDICARE A & B Anticipated DC Date: Planned Disposition: Nursing Facility [facility] Cert External Planned Provider: : DCP follow-up note: Patient in agreement to discharge to [facility] today, she will be going to a skilled bed. I spoke with Zulay and discharge clinical faxed. I informed Zulay she was on 2 liters NC oxygen. They will pick her up at 3:30. Patient states she does not want me to notify her niece or son, that she will notify them. Case management will follow and assist as needed. Johana Patino DCP- Discharge Planning Updated by [id number]: Johana Patino on 06/11/19 1:[address] Updated clinical sent to [facility]. Zulay states to call her tomorrow at [phone] if she is discharged so she can set up equipment needs, etc. CM will continue to follow and assist with discharge planning/needs. DCP- Discharge Planning Updated by [id number]: Johana Sukumar on 06/08/19 3:[address] Patient Name: COLE MAE Admission Status: ER Accout number: [id number] Admission Date: 06-03-2019 : 1955 Admission Diagnosis:CELLULITIS OF LEFT LOWER LIMB Attending: RIRI Current LOS: 5 Anticipated DC Date: Planned Disposition: Nursing Facility [facility] Primary Insurance: MEDICARE A & B Discharge Planning Comments: CM met with patient to complete initial dc planning assessment. CM educated patient on the CM role and verbal consent given by patient to complete assessment. Patient lives at [facility]. At discharge patient plans to return and feels this is a safe discharge. She states that she will be able to transport in their van when ready for discharge. CM will continue to follow and will assist as needed with dc plans/needs. Commercial Subcontractor: Johana Patino DCPIA - Discharge Planning Initial Assessment Updated by [id number]: Johana Patino on 06/08/19 4:44 pm * Is the patient Alert and Oriented? Yes * PCP Dr. Almonte * Preadmission Environment Fpc Alf * Facility Name [facility] * ADLs Total Dependent * Other Equipment All equipment provided by [facility] * List name and contact numbers for known caregivers / representatives who currently or will assist patient after discharge: Nery valdovinoskrishna - [phone] Jovany mckinnon - [phone] * Verbal permission to speak to the caregivers and representatives has been obtained from the patient. Yes * Community resources currently utilized None * Additional services required to return to the preadmission environment? No * Can the patient safely return to the preadmission environment? Yes * Has this patient been hospitalized within the prior 30 days at any hospital? No Coverage Notice Reviewer: [id number] Zenobia Patino Notice Issued Date-Time: 06/08/2019 16:46 Notice Type: Patient Choice Letter Notice Delivered To: Patient Relationship to Patient: Self Analytical Laboratory Technician Name: Delivery Method: HAND - Hand Delivered Juliann Days: Prior Verbal Notification: Recipient Understood Notice: Yes Recipient Signature: Yes Med Rec Note Co-signed by Attending: Coverage Notice Comment: JOSE for [facility] Reviewer: [id number] Zenobia Patino Notice Issued Date-Time: 06/12/2019 12:07 Notice Type: IM Discharge Notice Notice Delivered To: Patient Relationship to Patient: Self Analytical Laboratory Technician Name: Delivery Method: HAND - Hand Delivered Juliann Days: Prior Verbal Notification: Recipient Understood Notice: Yes Recipient Signature: Yes Med Rec Note Co-signed by Attending: Coverage Notice Comment: IMM explained, signed, given, copy placed in MR Last DP export: 06/11/19 1:58 p Patient Name: COLE MAE Page 09233 at 1214 All edits/amendments must be made on the electronic document DICTATION DATE: 06/12/19 1214 MIGRATORY GAME BIRD BIOLOGIST: CHERRY 06/12/19 1214 RPT#: [id number] DC DATE: STATUS: ADM IN [facility] [address] [place] [address] END OF REPORT
[2019-06-12 12:50] VITALS: BP 144/76
--- NOTE | 2019-06-12 14:26 | NUR ---
REPORT CALLED TO ROLDAN DELA CRUZ RN AT [facility].
--- NOTE | 2019-06-12 15:43 | NUR ---
PT DISCHARGED UNDER THE CARE OF [facility] TRANSPORTATION. IV DISCONTINUED PRIOR TO DISCHARGE AND VERBALIZED UNDERSTANDING OF DISCHARGE INSTRUCTIONS. STABLE AT TIME OF DEPARTURE.
--- NOTE | 2019-06-12 19:59 | NUR ---
EMS HERE TO TRANSPORT PT TO [facility]. CALLED [facility] TO ADVISE THAT PT IS ON HER WAY.
--- NOTE | 2019-06-15 11:48 | MORECARE ---
CASE MANAGEMENT DISCHARGE SUMMARY PATIENT: COLE MAE UNIT: [id number] ADM DATE: 06/03/19 AGE: 63 : 55 SEX: F ROOM/BED: D.2236 AUTHOR: MATT,DOC PHYSICIAN: REFERRING PHYSICIAN: DEANDRE RACHEL MD DATE OF SERVICE: 06/15/19 Discharge Plan Patient Name: COLE MAE Facility: [facility]:[place] : 1955 Planned Disposition: Nursing Facility [facility] Cert Anticipated Discharge Date: Discharge Date: 06/12/2019 Expected LOS: 0 Initial Reviewer: [email or web address] Initial Review Date: 06/08/2019 Generated: 06/15/19 12:48 pm Comments DCP- Discharge Planning Updated by [email or web address]: Johana Patino on 06/12/19 11:[address] Patient Name: COLE MAE Encounter No: [id number] : 1955 Primary Insurance: MEDICARE A & B Anticipated DC Date: Planned Disposition: Nursing Facility [facility] Cert External Planned Provider: : DCP follow-up note: Patient in agreement to discharge to [facility] today, she will be going to a skilled bed. I spoke with Zulay and discharge clinical faxed. I informed Zulay she was on 2 liters [place] oxygen. They will pick her up at 3:30. Patient states she does not want me to notify her niece or son, that she will notify them. Case management will follow and assist as needed. Johana Patino DCP- Discharge Planning Updated by [email or web address]: Johana Patino on 06/11/19 1:[address] Updated clinical sent to [facility]. Zulay states to call her tomorrow at [phone] if she is discharged so she can set up equipment needs, etc. CM will continue to follow and assist with discharge planning/needs. DCP- Discharge Planning Updated by [id number]: Johana Patino on 06/08/19 3:[address] Patient Name: COLE MAE Admission Status: ER Accout number: [id number] Admission Date: 06-03-2019 : 1955 Admission Diagnosis:CELLULITIS OF LEFT LOWER LIMB Attending: RIRI Current LOS: 5 Anticipated DC Date: Planned Disposition: Nursing Facility [facility] Primary Insurance: MEDICARE A & B Discharge Planning Comments: CM met with patient to complete initial dc planning assessment. CM educated patient on the CM role and verbal consent given by patient to complete assessment. Patient lives at [facility]. At discharge patient plans to return and feels this is a safe discharge. She states that she will be able to transport in their van when ready for discharge. CM will continue to follow and will assist as needed with dc plans/needs. Senior Loan Officer: Johana Patino DCPIA - Discharge Planning Initial Assessment Updated by [email or web address]: Johana Patino on 06/08/19 4:44 pm * Is the patient Alert and Oriented? Yes * PCP Dr. Almonte * Preadmission Environment [facility] * Facility Name [facility] * ADLs Total Dependent * Other Equipment All equipment provided by [facility] * List name and contact numbers for known caregivers / representatives who currently or will assist patient after discharge: Nery montes - [phone] Jovany mckinnon - [phone] * Verbal permission to speak to the caregivers and representatives has been obtained from the patient. Yes * Community resources currently utilized None * Additional services required to return to the preadmission environment? No * Can the patient safely return to the preadmission environment? Yes * Has this patient been hospitalized within the prior 30 days at any hospital? No Coverage Notice Reviewer: [id number] Zenobia Patino Notice Issued Date-Time: 06/08/2019 16:46 Notice Type: Patient Choice Letter Notice Delivered To: Patient Relationship to Patient: Self Catering And Events Manager Name: Delivery Method: HAND - Hand Delivered Juliann Days: Prior Verbal Notification: Recipient Understood Notice: Yes Recipient Signature: Yes Med Rec Note Co-signed by Attending: Coverage Notice Comment[facility] Reviewer: [id number] Zenobia Patino Notice Issued Date-Time: 06/12/2019 12:07 Notice Type: IM Discharge Notice Notice Delivered To: Patient Relationship to Patient: Self Catering And Events Manager Name: Delivery Method: HAND - Hand Delivered Juliann Days: Prior Verbal Notification: Recipient Understood Notice: Yes Recipient Signature: Yes Med Rec Note Co-signed by Attending: Coverage Notice Comment: IMM explained, signed, given, copy placed in MR Last DP export: 06/12/19 11:14 a Patient Name: COLE MAE Page [id number] at 1148 All edits/amendments must be made on the electronic document DICTATION DATE: 06/15/19 1148 CLAY TEMPERER: CHERRY 06/15/19 1148 RPT#: [id number] DC DATE:06/12/19 STATUS: DIS IN [facility] [address] [place] [address] END OF REPORT
== END 2019-06-12 15:45 | DRG 603 ==
LOC: D.ER 10:12 → D.MS 13:56
PROVIDERS: Family Medicine; Legal Medicine; ADMIT Emergency Medicine; ATTEND Emergency Medicine
DX: L03.116 Cellulitis of left lower limb (principal); N17.9 Acute kidney failure, unspecified; L03.115 Cellulitis of right lower limb; D64.9 Anemia, unspecified; F03.90 Unspecified dementia, unspecified severity, without behavioral disturbance, psychotic disturbance, mood disturbance, and anxiety; I50.9 Heart failure, unspecified; I11.0 Hypertensive heart disease with heart failure; F31.9 Bipolar disorder, unspecified